=== PATIENT | female | born 1950 | race Caucasian/White ===

== ENCOUNTER → 2017-01-07 | Outpatient (CLI) | payer OTHER ==
--- NOTE | 2017-01-07 15:40 | DIAGNOSTIC IMAGING REPORT ---
RIGHT KNEE MRI HISTORY: Right knee pain. COMPARISON STUDY: None. TECHNIQUE: Multiplanar multisequence MRI of the right knee was performed according to standard department protocol without the use of contrast. FINDINGS: Menisci: The medial and lateral menisci are intact. Increased signal within the body of the medial meniscus. However, no definite tear. There is a small oblique tear within the anterior horn of the lateral meniscus. Ligaments: There is edema surrounding an intact MCL. This suggests a grade I injury. The ACL, PCL, and LCL are intact. Extensor mechanism: The quadriceps tendon and patellar ligament are intact. Articular cartilage and bone: No fracture or dislocation. Small amount of increased signal within the medial patellar facet consistent with a mild chondromalacia. Remaining cartilage spaces are maintained for age. Joint effusion: None. Soft tissues: Small ganglion cyst posterior to the distal femur. Small amount of fluid adjacent to the medial gastrocnemius tendon. This favors a small popliteal cyst which may be partially ruptured. There is increased signal within the proximal medial gastrocnemius tendon consistent with a mild tendinopathy. IMPRESSION: 1. Small oblique tear within the anterior horn of the lateral meniscus. 2. Edema surrounding the intact MCL. This suggests a grade I injury (sprain). 3. Mild patellar chondromalacia. 4. Mild medial gastrocnemius tendinopathy. 5. There appears to be a small popliteal cyst which may be partially ruptured. Electronically signed by: Aleksey Jordan M.D. 01/07/2017 3:38 PM Dictated Date/Time: 01/07/2017 3:26 PM
== END | disposition home or self-care (01) ==
LOC: C.MRI 13:40
PROVIDERS: ATTEND Family Medicine
DX: S83.281A Other tear of lateral meniscus, current injury, right knee, initial encounter (principal); X58.XXXA Exposure to other specified factors, initial encounter; R60.0 Localized edema; M22.41 Chondromalacia patellae, right knee

== ENCOUNTER → 2017-03-28 | Outpatient (CLI) | payer OTHER ==
[2017-03-28 13:52] LABS: CHOLESTEROL/HDL RATIO 1.7
== END | disposition home or self-care (01) ==
LOC: C.LABMFLN 07:28
PROVIDERS: ATTEND Family Medicine
DX: M85.80 Other specified disorders of bone density and structure, unspecified site (principal); E78.5 Hyperlipidemia, unspecified

== ENCOUNTER → 2018-04-03 | Outpatient (CLI) | payer OTHER | END | disposition home or self-care (01) | LOC: C.LABMFLN 07:36 | PROVIDERS: ATTEND Family Medicine | DX: Z00.00 Encounter for general adult medical examination without abnormal findings (principal); M85.80 Other specified disorders of bone density and structure, unspecified site; E78.5 Hyperlipidemia, unspecified ==